=== PATIENT | male | born 1980 | race African-American/Black ===

== ENCOUNTER 2018-08-06 18:35 | Emergency (ER) | payer SELFPAY ==
[~2018-08-06] VITALS: Ht 177.8 cm; Wt 86.2 kg
[~2018-08-06 18:35] MED LIST: ANAPROX DS550 MG PO; REGLAN10 MG PO; TRIMOX500 MG PO
[2018-08-06] MEDS ORDERED: ALLEGRA-D 24 H1 EACH PO (19:09)
[2018-08-06] MEDS ORDERED: ZITHROMAX250 MG PO (19:09)
[2018-08-06] MEDS ORDERED: PROAIR HFA8.5 GM INH (19:09)
[2018-08-06] MEDS ORDERED: FLONASE ALLERG9.9 ML NAS (19:09)
== END 2018-08-06 19:19 | disposition home or self-care (01) ==
LOC: ED 18:35
DX: H66.92 Otitis media, unspecified, left ear (principal); R05 Cough; F17.200 Nicotine dependence, unspecified, uncomplicated

== ENCOUNTER 2020-06-09 07:07 | Emergency (ER) | payer OTHER ==
[~2020-06-09] VITALS: Ht 180.3 cm; Wt 86.2 kg
[~2020-06-09 07:07] MED LIST changes: +ALLEGRA-D 24 H1 EACH PO; +FLONASE ALLERG9.9 ML NAS; +PROAIR HFA8.5 GM INH; +ZITHROMAX250 MG PO
[2020-06-09] MEDS ORDERED: Motrin,Rufen800 MG PO (10:20)
== END 2020-06-09 10:49 | disposition home or self-care (01) ==
LOC: ED 07:07
DX: S86.911A Strain of unspecified muscle(s) and tendon(s) at lower leg level, right leg, initial encounter (principal); Z79.899 Other long term (current) drug therapy; X58.XXXA Exposure to other specified factors, initial encounter; Y93.89 Activity, other specified; Y92.89 Other specified places as the place of occurrence of the external cause; Y99.8 Other external cause status

== ENCOUNTER 2021-02-19 20:45 | Emergency (ER) | payer OTHER ==
[~2021-02-19] VITALS: Ht 180.3 cm; Wt 86.2 kg
[~2021-02-19 20:45] MED LIST changes: +Motrin,Rufen800 MG PO
[2021-02-19] MEDS ORDERED: PROVENTIL HFA6.7 GM INH (23:48)
[2021-02-19] MEDS ORDERED: PREDNISONE20 M1 PO (23:48)
[2021-02-19] MEDS ORDERED: ZITHROMAX250 MG PO (23:49)
== END 2021-02-20 00:10 | disposition home or self-care (01) ==
LOC: ED 20:45
DX: U07.1 COVID-19 (principal); Z79.2 Long term (current) use of antibiotics; Z79.899 Other long term (current) drug therapy

== ENCOUNTER → 2021-03-09 | Outpatient (CLI) | payer OTHER ==
[~2021-03-09] MED LIST changes: +PREDNISONE20 M1 PO; +PROVENTIL HFA6.7 GM INH
== END | disposition home or self-care (01) ==
LOC: RAD 09:33
PROVIDERS: ATTEND Family Medicine
DX: U07.1 COVID-19 (principal); J12.82 Pneumonia due to coronavirus disease 2019

== ENCOUNTER → 2021-03-25 | Outpatient (CLI) | payer OTHER | END | disposition home or self-care (01) | LOC: RAD 09:55 | PROVIDERS: ATTEND Family Medicine | DX: U07.1 COVID-19 (principal); J18.9 Pneumonia, unspecified organism ==

== ENCOUNTER → 2021-04-14 | Outpatient (CLI) | payer OTHER | END | disposition home or self-care (01) | LOC: CT 10:00 | PROVIDERS: ATTEND Family Medicine | DX: U07.1 COVID-19 (principal); J18.9 Pneumonia, unspecified organism ==

== ENCOUNTER 2024-03-27 17:59 | Emergency (ER) | payer OTHER ==
[~2024-03-27] VITALS: Ht 180.3 cm; Wt 87.1 kg
[2024-03-27] MEDS ORDERED: SODIUM CHLORIDE 0.9% 1,000 ML IV ONE (18:40)
[2024-03-27] MEDS ORDERED: Ketorolac Tromethamine 30 MG/ML VIAL IV ONE (18:40)
[2024-03-27] MEDS ORDERED: diphenhydrAMINE hydrochloride 50 MG/ML VIAL IV ONE (18:40)
[2024-03-27] MEDS ORDERED: Metoclopramide Hydrochloride 10 MG/2 ML AMP IV ONE (18:40)
== END 2024-03-27 20:46 | disposition home or self-care (01) ==
LOC: ED 17:59
DX: R51.9 Headache, unspecified (principal); Z98.890 Other specified postprocedural states